=== PATIENT | female | born 1980 | race Caucasian/White ===

== ENCOUNTER 2021-11-17 00:37 | Emergency (ER) | payer MEDICAID ==
[~2021-11-17] VITALS: Ht 172.7 cm; Wt 68.2 kg
[2021-11-17 04:03] VITALS: BP 124/78
== END 2021-11-17 04:05 | disposition home or self-care (01) ==
LOC: ER 00:38
DX: R07.9 Chest pain, unspecified (principal); R11.2 Nausea with vomiting, unspecified
CPT/HCPCS: 70450; 71045; 80053; 80320; 83880; 93005; 99285